=== PATIENT | male | born 1975 | race Caucasian/White ===

== ENCOUNTER → 2017-06-17 | Outpatient (CLI) | payer MEDICARE, MEDICAID | LOC: CARD 13:15 | PROVIDERS: ATTEND Internal Medicine Cardiovascular Disease | DX: R07.9 Chest pain, unspecified (principal); G80.9 Cerebral palsy, unspecified | CPT/HCPCS: 93306 ==

== ENCOUNTER 2020-06-07 21:06 | Emergency (ER) | payer MEDICARE, MEDICAID ==
[~2020-06-07] VITALS: Ht 175 cm; Wt 81.0 kg
--- OUTSIDE RECORDS SUMMARY | 2020-06-07 21:14 | XMS REPORT ---
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 Name Role Phone MARITZA WOODARD Unavailable PROBLEMS Unknown Problems ALLERGIES Substance Reaction Event Type Date Status Bactrim Unknown Drug Allergy Sep, Active ENCOUNTERS Encounter Location Date Diagnosis [facility] [address] [facility] [id number] [place] [address] [phone] Sep, Oral health maintenance stat us requiring routine preventive dental care K08.9 [facility] [address] [id number] [address] [place] [address] [phone] Sep, Caries K02.9 [facility] [address] [id number] [address] [place] [address] [phone] May, Encounter for dental examina tion Z01.20 [facility] [address] [id number] [address] [place] [address] [phone] Nov, Encounter for dental examina tion Z01.20 [facility] [address] [id number] [address] [place] [address] [phone] Apr, Dental examination Z01.20 [facility] [address] [id number] [address] [place] [address] [phone] Sep, Encounter for dental examina tion and cleaning without abnormal findings Z01.20 [facility] [address] [facility] [id number] [address] [place] [phone] March, IMMUNIZATIONS No Known Immunizations SOCIAL HISTORY Never Assessed REASON FOR VISIT Restorative #19 PLAN OF CARE Activity Details Follow Up prn Reason:Hygeine VITAL SIGNS Blood pressure systolic 124 mmHg 2018-10-01 Blood pressure diastolic 88 mmHg 2018-10-01 MEDICATIONS Medication Instructions Dosage Frequency Start Date End Date Duration S tatus Risperidone Active Senna 8.6 MG Orally Once a day 2 tablets at bedtime as needed 24h Active HydrOXYzine HCl 25 MG Orally every 8 hrs 1 tablet as needed 8h Active Flonase 50 MCG/ACT Nasally Once a day 1 spray in each nostril 24h Active Cyclobenzaprine HCl 10 MG Orally Three times a day 1 tablet 8h Active RESULTS No Results PROCEDURES Procedure Date Ordered Result Body Site RESIN COMPOS - 1 SURFACE POSTERIOR Oct 01, 2018 Billing Notes on claim Oct 01, 2018 INSTRUCTIONS MEDICATIONS ADMINISTERED No Known Medications MEDICAL (GENERAL) HISTORY Type Description Date Medical History back trouble Medical History mild IDD Medical History Autism Medical History Depression Medical History Cerebral Palsy Surgical History Rectum surgery Hospitalization History rectum surgery
--- OUTSIDE RECORDS SUMMARY | 2020-06-07 21:14 | XMS REPORT | Continuity of Care Document ---
Author Organization Unknown Address Unknown Phone Unavailable Allergies Active Description Code Type Severity Reaction Onset Reported/Identified Relationship to Patient Clinical Status Yes BACTRIM BACTRIM SEVERE Yes SULFA (SULFONAMIDE ANTIBIOTICS) SULFA (SULFONAMIDE A SEVERE Yes BACTRIM SEVERE DERMATOLOGICAL - JENNIFER Yes BACTRIM SEVERE SEVERE Yes SULFA (SULFONAMIDE ANTIBIOTICS) SEVERE OTHER Yes SULFA (SULFONAMIDE ANTIBIOTICS) SEVERE SEVERE Medications Medication Packaging Start Date St op Date Route Dosage Sig ASA 81MG CHEWABLE TAB 81 MG (BABY ASPIRIN) MG 12/16/2016 12/16/2016 ONCE&1220 ASA 81MG CHEWABLE TAB 81 MG (BABY ASPIRIN) MG 12/17/2016 12/17/2016 ONCE&1027 ASA 81MG CHEWABLE TAB 81 MG (BABY ASPIRIN) MG 12/18/2016 12/24/2016 Daily&0900 Problems Date Dx Coded Attending Type Code Diagnosis Diagnosed By 12/16/2016 Elbert Brandon 299.0 AUTISTIC DISORDER 12/16/2016 Elbert Brandon 786.5 CHEST PAIN 12/16/2016 Elbert Brandon F84.0 AUTISTIC DISORDER 12/16/2016 Elbert Brandon R07.89 OTHER CHEST PAIN 12/17/2016 Elbert Brandon 786.5 CHEST PAIN 12/17/2016 Elbert Brandon R07.89 OTHER CHEST PAIN 07/17/2017 KEVON GUADARRAMA MD Ot G80. 9 CEREBRAL PALSY, UNSPECIFIED 07/17/2017 KEVON GUADARRAMA MD Ot R07. 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, BILATERAL 05/05/2018 W R52 PAIN, UNSPECIFIED 05/05/2018 A V70.0 ROUT INE GENERAL MEDICAL EXAMINATION AT A HEALTH CARE FACILITY 05/05/2018 A Z00.01 ENC OUNTER FOR GENERAL ADULT MEDICAL EXAMINATION WITH ABNORMAL FINDINGS 11/24/2018 W 461.9 ACUT E SINUSITIS, UNSPECIFIED 11/24/2018 W 786.2 COUGH 11/24/2018 W 847.9 SPRA IN OF UNSPECIFIED SITE OF BACK 11/24/2018 W J01.90 ACU TE SINUSITIS, UNSPECIFIED 11/24/2018 W R05 COUGH 11/24/[address] RAIN OF MUSCLE, FASCIA AND TENDON OF LOWER BACK 12/21/2018 W R46.89 OTH ER SYMPTOMS AND SIGNS INVOLVING APPEARANCE AND BEHAVIOR 12/21/2018 W V41.8 OTHE R PROBLEMS WITH SPECIAL FUNCTIONS 05/10/2019 W 054.9 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 05/10/2019 W 523.10 CHR ONIC GINGIVITIS, PLAQUE INDUCED 05/10/2019 W 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 05/10/2019 W K05.10 CHR ONIC GINGIVITIS, PLAQUE INDUCED 05/10/2019 W V58.69 ANGELA G-TERM (CURRENT) USE OF OTHER MEDICATIONS 05/10/2019 W V70.0 ROUT INE GENERAL MEDICAL EXAMINATION AT A HEALTH CARE FACILITY 05/10/2019 W Z00.00 ENC OUNTER FOR GENERAL ADULT MEDICAL EXAMINATION WITHOUT ABNORMAL FINDINGS 05/10/2019 W Z79.899 OT HER SHIP MATE (CURRENT) DRUG THERAPY 07/12/2019 Niecy Rtoh 704.8 OTHER SPECIFIED DISEASES OF HAIR AND HAIR FOLLICLES 07/12/2019 Niecy Roth L73.9 FOLLICULAR DISORDER, UNSPECIFIED 07/12/2019 Niecy Roth 704.8 OTHER SPECIFIED DISEASES OF HAIR AND HAIR FOLLICLES 07/12/2019 Niecy Roth L73.9 FOLLICULAR DISORDER, UNSPECIFIED 07/12/2019 Niecy Roth 704.8 OTHER SPECIFIED DISEASES OF HAIR AND HAIR FOLLICLES 07/12/2019 Niecy Roth73.9 FOLLICULAR DISORDER, UNSPECIFIED Procedures There is no data. Results Test Result Range Thyroid Stimulating Hormone - 10/09/16 1 0:00 TSH 2.09 mIU/mL 0.32-5.00 Comprehensive Metabolic Panel - 10/21/16 12:25 Albumin 4.7 g/dL 3.6-5.1 ALP 84 U/L 35-130 ALT 50 U/L 6-45 Anion Gap 14 6-14 AST 26 U/L 2-40 BUN 11 mg/dL 5-25 Calcium 9.7 mg/dL 8.3-10.4 Chloride 108 mmol/L 95-114 CO2 22 mEq/L 22-33 Creat 0.84 mg/dL 0.50-1.50 eGFR 100 mL/min/1.73m2 >59 Globulin 2.4 g/dL 2.3-3.5 Glucose 123 mg/dL 70-110 Osmo 290 280-295 Potassium 3.9 mmol/L 3.5-5.3 Sodium 140 mmol/L 134-148 TBil 1.0 mg/dL 0.2-1.2 TP 7.1 g/dL 6.0-8.3 [facility] - 10/25/16 09:19 [facility] 0.55 mmol/L 0.60-1.40 [facility] - 12/02/16 08:38 [facility] 0.53 mmol/L 0.60-1.40 [facility] - 12/05/16 09:00 [facility] 0.80 mmol/L 0.60-1.40 Thyroid Stimulating Hormone - 12/12/16 0 9:31 TSH 2.41 mIU/mL 0.32-5.00 Cardiac Panel - 12/16/16 12:20 CK 91 U/L 26-174 CK-MB 0.8 ng/ml 0.0-9.2 Myoglobin 24.4 ng/ml 1.6-154.9 Troponin 0.033 ng/mL 0.000-0.400 Cardiac Panel - 12/16/16 14:50 CK 85 U/L 26-174 CK-MB 0.6 ng/ml 0.0-9.2 Myoglobin 21.6 ng/ml 1.6-154.9 Troponin 0.030 ng/mL 0.000-0.400 Cardiac Panel - 12/17/16 10:18 CK 78 U/L 26-174 CK-MB 0.6 ng/ml 0.0-9.2 Myoglobin 24.2 ng/ml 1.6-154.9 Troponin <0.020 ng/mL 0.0-0.4 [facility] - 12/17/16 10:19 [facility] 0.91 mmol/L 0.60-1.40 Thyroid Stimulating Hormone - 02/24/17 0 8:59 TSH 1.61 mIU/mL 0.32-5.00 Thyroid Stimulating Hormone - 03/13/17 0 9:23 TSH 2.21 mIU/mL 0.32-5.00 Thyroid Stimulating Hormone - 05/19/17 0 8:37 TSH 2.87 mIU/mL 0.32-5.00 Thyroid Stimulating Hormone - 08/08/17 1 0:56 TSH 1.61 mIU/mL 0.32-5.00 Thyroid Stimulating Hormone - 10/31/17 0 8:47 TSH 2.08 mIU/mL 0.32-5.00 Thyroid Stimulating Hormone - 02/03/18 0 8:41 TSH 1.93 mIU/mL 0.32-5.00 Hepatic Panel - 02/19/18 09:12 Albumin 4.8 g/dL 3.6-5.1 ALP 66 U/L 35-130 ALT 56 U/L 6-45 AST 28 U/L 2-40 DBil 0.2 mg/dL 0.0-0.2 GGT 39 U/L 5-40 Globulin 2.7 g/dL 2.3-3.5 TBil 0.5 mg/dL 0.2-1.2 TP 7.5 g/dL 6.0-8.3 Hepatic Panel - 03/26/18 09:20 Albumin 4.5 g/dL 3.6-5.1 ALP 68 U/L 35-130 ALT 85 U/L 6-45 AST 40 U/L 2-40 DBil 0.1 mg/dL 0.0-0.2 GGT 52 U/L 5-40 Globulin 2.5 g/dL 2.3-3.5 TBil 0.4 mg/dL 0.2-1.2 TP 7.0 g/dL 6.0-8.3 Thyroid Stimulating Hormone - 04/23/18 0 9:14 TSH 2.91 mIU/mL 0.32-5.00 Hepatic Panel - 05/06/18 09:21 Albumin 5.1 g/dL 3.6-5.1 ALP 66 U/L 35-130 ALT 98 U/L 6-45 AST 42 U/L 2-40 DBil 0.3 mg/dL 0.0-0.2 GGT 41 U/L 5-40 Globulin 2.2 g/dL 2.3-3.5 TBil 0.8 mg/dL 0.2-1.2 TP 7.3 g/dL 6.0-8.3 Thyroid Stimulating Hormone - 07/22/18 0 8:11 TSH 2.62 mIU/mL 0.32-5.00 Lipid Panel - 08/06/18 09:31 C/HDL 2.8 3.7-6.7 Cholesterol 184 mg/dL 100-240 HDL 66 mg/dL 30-85 LDL-Calculated 103 mg/dL 0-100 Trig 75 mg/dL 35-160 VLDL 15 mg/dL 0-42 [facility] - 11/26/18 09:35 [facility] 0.91 mmol/L 0.60-1.40 Comprehensive Metabolic Panel - 05/10/19 10:40 Albumin 4.7 g/dL 3.6-5.1 ALP 81 U/L 35-130 ALT 20 U/L 6-45 Anion Gap 13 6-14 AST 18 U/L 2-40 BUN 11 mg/dL 5-25 Calcium 10.5 mg/dL 8.3-10.4 Chloride 108 mmol/L 95-114 CO2 22 mEq/L 22-33 Creat 0.73 mg/dL 0.50-1.50 eGFR 116 mL/min/1.73m2 >59 Globulin 2.4 g/dL 2.3-3.5 Glucose 101 mg/dL 70-110 Osmo 287 280-295 Potassium 4.1 mmol/L 3.5-5.3 Sodium 139 mmol/L 134-148 TBil 0.3 mg/dL 0.2-1.2 TP 7.1 g/dL 6.0-8.3 Thyroid Stimulating Hormone - 05/12/19 0 9:04 TSH 2.17 mIU/mL 0.32-5.00 Thyroid Stimulating Hormone - 07/28/19 0 9:07 TSH 1.18 mIU/mL 0.32-5.00 Comprehensive Metabolic Panel - 11/04/19 08:44 Albumin 5.0 g/dL 3.6-5.1 ALP 79 U/L 35-130 ALT 24 U/L 6-45 Anion Gap 14 6-14 AST 22 U/L 2-40 BUN 11 mg/dL 5-25 Calcium 10.4 mg/dL 8.3-10.4 Chloride 106 mmol/L 95-114 CO2 22 mEq/L 22-33 Creat 0.81 mg/dL 0.50-1.50 eGFR 103 mL/min/1.73m2 >59 Globulin 2.6 g/dL 2.3-3.5 Glucose 99 mg/dL 70-110 Osmo 285 280-295 Potassium 4.3 mmol/L 3.5-5.3 Sodium 138 mmol/L 134-148 TBil 0.7 mg/dL 0.2-1.2 TP 7.6 g/dL 6.0-8.3 Encounters ACCT No. Visit Date/Time Discharge Status Pt. Type Provider Facility Loc./Unit Complaint [id number] 05/06/2014 09:55:00 05/06/2014 23:59: 59 CLS Outpatient JUAN PABLO FRAGOSO DDS Moo [id number] 04/03/2020 15:28:00 04/03/2020 23:59 :00 DIS Outpatient Niecy Roth [id number] 12/17/2019 08:18:00 12/17/2019 23:59 :00 DIS Outpatient Niecy Roth [id number] 11/04/2019 08:40:00 11/04/2019 23:59 :00 DIS Outpatient Estrella Emery [id number] 07/28/2019 09:03:00 07/28/2019 23:59: 00 DIS Outpatient Estrella Emery [id number] 07/12/2019 13:00:00 07/12/2019 23:59: 00 DIS Outpatient Niecy Roth [id number] 07/09/2019 16:39:00 07/09/2019 23:59: 00 DIS Outpatient Niecy Roth [id number] 07/09/2019 10:13:00 07/09/2019 23:59: 00 DIS Outpatient Niecy Roth [id number] 05/12/2019 09:01:00 05/12/2019 23:59: 00 DIS Outpatient JERRELL JESUS [id number] 05/10/2019 13:51:00 05/10/2019 23:59: 00 DIS Outpatient JERRELL JESUS [id number] 11/26/2018 09:24:00 11/26/2018 23:59: 00 DIS Outpatient SARAH CHOWDARY [id number] 08/06/2018 09:21:00 08/06/2018 23:59: 00 DIS Outpatient Estrella Emery [id number] 08/04/2018 13:21:00 08/04/2018 13:21: 00 CAN Outpatient JERRELL JESUS [id number] 07/22/2018 08:08:00 07/22/2018 23:59: 00 DIS Outpatient Larry Welch [id number] 05/06/2018 09:18:00 05/06/2018 23:59: 00 DIS Outpatient Rupert Estrella [id number] 04/23/2018 09:08:00 04/23/2018 23:59: 00 DIS Outpatient Rupert Estrella [id number] 03/26/2018 09:16:00 03/26/2018 23:59: 00 DIS Outpatient Larry Welch [id number] 02/19/2018 09:10:00 02/19/2018 23:59: 00 DIS Outpatient MaldonadomamadouLarry [id number] 02/03/2018 08:37:00 02/03/2018 23:59: 00 DIS Outpatient Estrella Emery [id number] 01/23/2018 08:39:00 01/23/2018 08:39: 00 CAN Outpatient Alber Spain [id number] 10/31/2017 08:44:00 10/31/2017 23:59: 00 DIS Outpatient Alber Spain [id number] 08/08/2017 10:45:00 08/08/2017 23:59: 00 DIS Outpatient Alber Spain [id number] 05/19/2017 08:34:00 05/19/2017 23:59: 00 DIS Outpatient Abler Spain [id number] 03/13/2017 09:08:00 03/13/2017 23:59: 00 DIS Outpatient Estrella Emery [id number] 02/24/2017 08:54:00 02/24/2017 23:59: 00 DIS Outpatient Estrella Emery [id number] 12/17/2016 10:01:00 12/17/2016 11:54: 00 [id number] 12/16/2016 11:57:00 12/16/2016 15:39: 00 [id number] 12/12/2016 09:27:00 12/12/2016 23:59: 00 DIS Outpatient Estrella Emery [id number] 12/05/2016 08:57:00 12/05/2016 23:59: 00 DIS Outpatient Alber Spain [id number] 12/02/2016 08:31:00 12/02/2016 23:59: 00 DIS Outpatient Estrella Emery [id number] 10/25/2016 09:12:00 10/25/2016 23:59: 00 DIS Outpatient Mike Toure [id number] 10/21/2016 12:14:00 10/21/2016 23:59: 00 DIS Outpatient JuditAlber [id number] 10/09/2016 09:56:00 10/09/2016 23:59: 00 DIS Outpatient Estrella Emery [id number] 05/10/2019 10:30:00 Document Registration [id number] 12/21/2018 10:00:00 Document Registration [id number] 11/24/2018 17:10:00 Document Registration [id number] 05/06/2018 15:20:00 Document Registration [id number] 12/16/2016 12:22:22 Document Registration [id number] 01/14/2017 13:06:06 7 23:59:59 CLS Outpatient Niecy Portillo [facility] [id number] 06/17/2017 13:15:00 017 23:59:59 CLS Outpatient THIERRY OWENS, KEVON Choe [facility] CARD CHEST PAIN SYNDROME [id number] 06/07/2020 21:08:[address] Emergency ARRON OWENS, NIYA Choe [facility] ER R [place]OT [place]ED [place]IL [id number] 04/20/2019 10:30:00 04/20/2019 23:59:5 9 CLS Outpatient [facility]
--- OUTSIDE RECORDS SUMMARY | 2020-06-07 21:14 | XMS REPORT ---
Author Lee Parisi Organization [employer] Address Unknown Phone Unavailable Care Team Providers Care Die Set Up Worker Name Role Phone MICHELLE NIEVES CP Unavailable Allergies, Adverse Reactions, Alerts Substance Reaction Event Type N.K.D.A. Info Not Available Non Drug Allergy Problems Problem Type Condition Code Onset Dates Condition Statu s Assessment Encounter for dental examina tion and cleaning without abnormal findings Z01.20 Active Problem Encounter for dental examination and celia aning without abnormal findings Z01.20 Active Medications Medication Code System Code Instructions Start Date End Date Status Dosage Risperidone [facility] [id number] not de fined Procedures Procedure Coding System Code Date PANORAMIC FILM SEE ALSO CODE 12088 CPT-4 D0330 Oct 13, 2015 INTRAORL-PERIAPICAL 1 FILM 24469 CPT-4 D0220 Oct 13, 2015 COMP ORAL EVALUATION - NEW/EST PT CPT-4 D0150 Oct 13, 2015 TOPICAL FLUORIDE VARNISH CPT-4 D1206 Oct 13, 2015 INTRAORL-PERIAPICAL EA ADD FILM CPT-4 D0230 Oct 13, 2015 INTRAORL-PERIAPICAL 1 FILM 48484 CPT-4 D0220 Oct 13, 2015 PROPHYLAXIS - ADULT CPT-4 D1110 Oct 13, 2015 BITEWINGS - FOUR FILMS CPT-4 D0274 Oct 13, 2 015 Vital Signs Date/Time: Oct 13, 2015 Blood Pressure Diastolic 86 mmHg Blood Pressure Systolic 117 mmHg Results No Known Results Summary Purpose [employer] Submission
--- OUTSIDE RECORDS SUMMARY | 2020-06-07 21:14 | XMS REPORT ---
Author Author Digital Reasoning binder [employer] [facility] [place] [employer] [facility] [employer] Address [address] [place] [address] Care Team Providers Care Remittance Clerk Name Role Phone MICHELLE NIEVES Unavailable Unavailable MARITZA WOODARD Unavailable HOWFLORECITA, MIHAI Unavailable Unavailable JESUS, JERRELL Unavailable Unavailable JESUS, JERRELL Unavailable Unavailable TRUDI, EZRA Unavailable Unavailable TRUDI, EZRA Unavailable Unavailable RAYMOND, KEYUR Unavailable Unavailable RAYMOND, KEYUR Unavailable Unavailable RAYMOND, KEYUR Unavailable Unavailable TEREZA, DIAMANTE Unavailable Unavailable TEREZA, DIAMANTE Unavailable Unavailable TEREZA, DIAMANTE Unavailable Unavailable Niecy Portillo Unavailable Unavaila ble JESUS, JERRELL Unavailable Unavailable JESUS, JERRELL Unavailable Unavailable JESUS, JERRELL Unavailable Unavailable DONNELLY, NIECY Unavailable Unavailable DONNELLY, NIECY Unavailable Unavailable DONNELLY, NIECY Unavailable Unavailable RAYMOND, KEYUR Unavailable Unavailable RAYMOND, KEYUR Unavailable Unavailable RAYMOND, KEYUR Unavailable Unavailable PCP, OUTSIDE Unavailable Unavailable Unavailable Unavailable Unavailable Unavailable Unavailable Unavailable Allergies Allergy Reported Allergen(s) Allergy Type Date of Reaction(s) Care Facility Classificati Onset Provider on Sulfamethoxa Sulfamethoxazole / Drug Allergy 10-01-2018 Unknown MIHAI Not zole / Trimethoprim ; HOWAYEK Available Trimethoprim Translations: (84191) (24 sources) [Sulfamethoxazole 400 MG / Trimethoprim 80 MG Oral Tablet [Bactrim]] Sulfonamides Sulfonamides (Antibiotic) Drug Allergy OTHER, S IMON Not (antibiotic) SEVERE HOWAYEK Available (23 sources) ([id number]) Encounters Encounter Date Encounter Type Encounter Diagnosis Care Provider Facility Start: Patient encounter [facility] Di strict #1 04-03-2020 [facility] End: 04-03-2020 Start: Patient encounter [facility] Di strict #1 12-17-2019 procedure [facility] ([id number]) End: 12-17-2019 Start: Patient encounter [facility] istrict #1 11-04-2019 procedure [facility] ([id number]) End: 11-04-2019 Start: Patient encounter [facility] D istrict #1 07-28-2019 procedure of [facility] ([id number]) End: 07-29-2019 Start: Patient encounter [facility] Di strict #1 07-12-2019 procedure of [facility] ([id number]) End: 07-13-2019 Start: Patient encounter [facility] Di strict #1 07-09-2019 procedure of [facility] ([id number]) End: 07-10-2019 Start: Patient encounter [facility] Di strict #1 07-09-2019 procedure of [facility] ([id number]) End: 07-10-2019 Start: Patient encounter [facility] Di strict #1 05-12-2019 procedure of [facility] ([id number]) End: 05-13-2019 Start: Patient encounter [facility] Di strict #1 05-10-2019 procedure of [facility] ([id number]) End: 05-11-2019 Start: Patient encounter [facility] Di strict #1 05-10-2019 procedure of [facility] ([id number]) End: 05-11-2019 Start: Patient encounter OUT[facility]IDE [facility] 04-20-2019 procedure [facility] ([id number]) Start: Patient encounter [facility] Di strict #1 12-21-2018 procedure of [facility] ([id number]) End: 12-22-2018 Start: Patient encounter [facility] Di strict #1 11-26-2018 procedure of [facility] ([id number]) End: 11-27-2018 Start: Patient encounter [facility] Di strict #1 11-24-2018 procedure of [facility] ([id number]) End: 11-25-2018 Start: [facility] Disorder of teeth and MICHELLE LEBRON ON [facility] 10-01-2018 DENTAL supporting DENTAL structures, unspecified Start: [facility] Dental caries, MARITZA NEARING [facility] 10-01-2018 DENTAL unspecified DENTAL Start: Patient encounter 08-06-2018 procedure End: 08-07-2018 Start: Patient encounter [facility] #1 07-22-2018 procedure of [facility] ([id number]) End: 07-23-2018 Start: [facility] Encounter for dental FATMATA RAFA [facility] 06-16-2018 DENTAL examination and DENTAL cleaning without abnormal findings Start: Patient encounter NA NA Not Availab le ([id number]) 06-16-2018 procedure Start: Patient encounter [facility] Di strict #1 05-06-2018 procedure of [facility] ([id number]) End: 05-06-2018 Start: Patient encounter 10-31-2017 procedure End: 10-31-2017 Start: Patient encounter DIAMANTE TEREZA Not Availab le ([id number]) 08-08-2017 procedure End: 08-09-2017 Start: Patient encounter KEVON GUADARRAMA MD Not Availa ble ([id number]) 06-17-2017 procedure Start: Patient encounter DIAMANTE STARKS Not Availab le ([id number]) 05-19-2017 procedure End: 05-20-2017 Start: Patient encounter KEYUR ANDRADE Not Availa ble ([id number]) 02-24-2017 procedure End: 02-25-2017 Start: Patient encounter Niecy Portillo Not A vailable ([id number]) 01-14-2017 procedure End: 01-15-2017 Start: Patient encounter MIHAI PHAM Not Availab le ([id number]) 12-17-2016 procedure End: 12-17-2016 Start: Patient encounter MIHAI PHAM Not Availab le ([id number]) 12-16-2016 procedure End: 12-16-2016 Start: Patient encounter KEYUR ANDRADE Not Availa ble ([id number]) 12-12-2016 procedure End: 12-13-2016 Start: Patient encounter DIAMANTE STARKS Not Availab le ([id number]) 12-05-2016 procedure End: 12-06-2016 Start: Patient encounter KEYUR ANDRADE Not Availa ble ([id number]) 12-02-2016 procedure End: 12-03-2016 Start: [facility] Encounter for dental FATMATA RAFA [facility] 11-20-2016 DENTAL examination and DENTAL cleaning without abnormal findings Start: [facility] Encounter for dental FATMATA RAFA [facility] 05-13-2016 DENTAL examination and DENTAL cleaning without abnormal findings Start: [facility] Encounter for dental MICHELLE Herrera [facility] 10-13-2015 DENTAL examination and DENTAL cleaning without abnormal findings Start: Telephone encounter SARAH [facility] 03-21-2015 Encounter for general [facility] Distric t #1 [facility] [place] examination without ([id number]) abnormal findings [facility] examination with ([id number]) abnormal findings Medical Equipment No Information Goals No Information Immunizations The data below is from unstructured sources No Known Immunizations Interventions No Information Medications Medication Drug Dates Sig Sig (Original) Class(es) (Normalized) cyclobenzaprine Muscle take 1 tablet Cyclobenzaprin e HCl 10 MG Orally Three hydrochloride 10 mg oral Relaxant by mouth three times a day 1 tablet 8h Active tablet times daily (1 source) fluticasone propionate Corticoste take 1 spray(s) Flonas e 50 MCG/ACT Nasally Once a day 1 0.05 mg/actuat metered roid nasal route spray i n each nostril 24h Active dose nasal spray once daily (1 source) hydrOXYzine Antihistam take 1 tablet HydrOXYzine HCl 25 MG Orally every 8 hrs hydrochloride 25 mg oral ine by mouth every 1 tab let as needed 8h Active tablet eight hours as (1 source) needed Senna Leaves take 2 tablets Senna 8.6 MG Orally Once a day 2 tablets (1 source) by mouth once at bedtime as neede d 24h Active daily at bedtime as needed Payers Date Payer Normalized Payer Policy ID MEDICARE MEDICARE Plan of Treatment The data below is from unstructured sources Activity Details Follow Up prn Reason:Hygeine Problems Active Problems Problem Problem Date Last Documented Episodic/Chr Provider Classificati Recorded Date onic on Disorders of Chronic gingivitis, plaque induced Chronic JERRELL teeth and ; Translations: [CHRONIC JESUS jaw GINGIVITIS, PLAQUE INDUCED] (4 sources) Disorders Autistic disorder Chronic MIHAI usually HOWAYEK diagnosed in infancy, childhood, or adolescence (3 sources) Paralysis Cerebral palsy, unspecified Chronic KEVON GUADARRAMA (1 source) Past or Other Problems Problem Problem Date Last Documented Episodic/Chr Provider Classificati Recorded Date onic on Attention-de Other symptoms and signs involving Episodic JERRELL ficit, appearance and behavior JESUS conduct, and disruptive behavior disorders (2 sources) Disorders of Disorder of teeth and supporting Episodic MARITZA teeth and structures, unspecified ; NEARING jaw Translations: [Dental caries, Other Phone: (2 sources) unspecified] Nonspecific Chest pain, unspecified ; Episodic SI MON chest pain Translations: [Other chest pain] CAROL CORONA (5 sources) Other Long-term (current) use of other Episodic JERRELL aftercare medications JESUS (2 sources) Other Other retirement (current) drug Episodic JERRELL aftercare therapy JESUS (2 sources) Other ear Otalgia, bilateral Episodic JERERLL and sense JESUS organ disorders (2 sources) Other lower Cough Episodic JERRELL respiratory JESUS disease (2 sources) Other lower Cough Episodic JERRELL respiratory JESUS disease (2 sources) Other skin Other melanin hyperpigmentation Episodic Niecy disorders Alfredo-Vette (1 source) r Other skin Other seborrheic keratosis Episodic P ilir disorders Alfredo-Vette (2 sources) r Other skin Follicular disorder, unspecified Episodic NIECY disorders CONY (5 sources) Other skin Other specified diseases of hair Episodic NIECY disorders and hair follicles CONY (5 sources) Other upper Acute sinusitis, unspecified ; Episodic JERRELL respiratory Translations: [ACUTE SINUSITIS, JONATHAN VENS infections UNSPECIFIED ] (4 sources) Residual Other problems with special Episodic JERRELL codes; functions JESUS unclassified (2 sources) Residual Pain, unspecified Episodic JERRELL codes; JESUS unclassified (2 sources) Spondylosis; Backache, unspecified Episodic JERRELL intervertebr JESUS al disc disorders; other back problems (2 sources) Sprains and Sprain of unspecified site of back Episodic JERRELL strains JESUS (2 sources) Unclassified Chest pain ; Translations: MIHAI (7 sources) [AUTISTIC DISORDER] HOWAYEK Unclassified Otalgia JERRELL (2 sources) JESUS Unclassified Strain of muscle, fascia and tendon JERRELL (2 sources) of lower back JESUS Viral Herpesviral vesicular dermatitis ; Episodic JERRELL infection Translations: [HERPES SIMPLEX BERNABE NS (4 sources) WITHOUT MENTION OF COMPLICA TION] Procedures Date Procedure Procedure Detail Performing Cl inician Start: Billing Notes on MARITZA NEARING 10-01-2018 claim Other Phone: Start: Post 1 [facility] MARITZA NEARING 10-01-2018 resinbased cmpst Other Phone: Results Test Name Value Interpreta Reference Facilit Date tion Range y Time laboratory on 2019-11-04 Albumin BCG dye 5.0 Invalid 3.6-5.1 [facility]osp[facility] [Mass/Vol] Interpreta g/dL l 019 tion Code Distric 03:44-0 t #1 of [facility] ([id number]) ALP [Catalytic 79 U/L Invalid 35-130 U/L Hospita -19-2 activity/Vol] Interpreta l 019 tion Code Distric 03:44-0 t #1 of [address] [facility] ([id number]) ALT [Catalytic 24 U/L Invalid 6-45 U/L Hospita 19-2 activity/Vol] Interpreta l 019 tion Code Distric 03:44-[address] t [address] [place] [address] ([id number]) Anion gap 14 mmol/L Invalid 6-14 Hospita 11-04-2 [Moles/Vol] Interpreta l 019 tion Code Distric 03:44-[address] t [address] [place] [address] ([id number]) AST [Catalytic 22 U/L Invalid 2-40 U/L [facility]ospita 11-04-2 activity/Vol] Interpreta l 019 tion Code Distric 03:44-0 t [address] [place] [address] ([id number]) Basophils (Bld) 0.0 10*3/uL Invalid 0.0-0.2 [facility]ospita 11-04 -2 [#/Vol] Interpreta K/uL l 019 tion Code Distric 03:44-0 t [address] [place] [address] ([id number]) Basophils/100 WBC 0.10 % Invalid 0.00-2.50 [facility]osp[facility] 19 -2 (Bld) Interpreta % l 019 tion Code Distric 03:44-[address] t [address] [place] [address] ([id number]) Bilirubin [Mass/Vol] 0.7 mg/dL Invalid 0.2-1.2 Hospita -2 Interpreta mg/dL l 019 tion Code Distric 03:44-0 t [address] [place] [address] ([id number]) Calcium [Mass/Vol] 10.4 mg/dL Invalid 8.3-10.4 [facility]ospita 12- 19-2 Interpreta mg/dL l 019 tion Code Distric 03:44-0 t [address] [place] [address] ([id number]) Chloride [Moles/Vol] 106 mmol/L Invalid 95-114 Hospita 1 2-19-2 Interpreta mmol/L l 019 tion Code Distric 03:44-0 t [address] [place] [address] ([id number]) Creatinine 0.81 mg/dL Invalid 0.50-1.50 [facility]ospita [Mass/Vol] Interpreta mg/dL l 019 tion Code Distric 03:44-0 t [address] [place] [address] ([id number]) Eosinophils (Bld) 0.2 10*3/uL [facility].0-0.7 [facility] [#[facility]] Interpre[facility] K/uL l 019 tion Code Distric 03:44-0 t [address] [place] [address] ([id number]) Eosinophils/100 WBC 1.3 % Invalid 0.0-7.0 % Hospita (Bld) Interpreta l 019 tion Code Distric 03:44-0 t [address] [place] [address] () Erythrocyte 12.8 % Invalid 11.6-14.8 [facility] distribution width Interpreta % l 019 (RBC) [Ratio] tion Code Distric 03:44-0 t [address] [place] [address] () GFR/1.73 sq 103 mL/min/{1.73_m2} Invalid >59 [facility] 2 M.predicted MDRD Interpreta mL/min/1.7 l 019 (S/P/Bld) [Vol tion Code 3m2 Distric 03:44-0 rate/Area] t [address] [place] [address] ([id number]) Globulin (S) 2.6 g/dL Invalid 2.3-3.5 [facility] [Mass/Vol] Interpreta g/dL l 019 tion Code Distric 03:44-0 t [address] [place] [address] ([id number]) Glucose [Mass/Vol] 99 mg/dL Invalid 70-110 [facility]ospita 12-1 9-2 Interpreta mg/dL l 019 tion Code Distric 03:44-0 t [address] [place] [address] ([id number]) HCO3 (P) [Moles/Vol] 22 Invalid 22-33 [facility] mEq/L l 019 tion Code Distric 03:44-0 t [address] [place] [address] ([id number]) Hematocrit (Bld) 44.5 % Invalid 42.0-52.0 [facility] [Volume fraction] Interpreta % l 019 tion Code Distric 03:44-0 t #1 of [address] [facility] ([id number]) Hemoglobin (Bld) 14.9 g/dL Invalid 14.0-17.0 [facility]osp[facility] [Mass/Vol] Interpreta g/dL l 019 tion Code Distric 03:44-0 t #1 of [address] [facility] ([id number]) [place] [Moles/Vol] 0.79 mmol/L Invalid 0.60-1.40 [facility]osp[facility] 1 2 Interpreta mmol/L l 019 tion Code Distric 03:44-0 t #1 of 500 [facility] ([id number]) Lymphocytes (Bld) 1.10 10*3/uL Invalid 0.60-3.40 [facility]osp[facility] [#/Vol] Interpreta K/uL l 019 tion Code Distric 03:44-0 t #1 of [address] [facility] ([id number]) Lymphocytes/100 WBC 8.1 % Low 10.0-50.0 [facility]ospita (Bld) % l 019 Distric 03:44-0 t #1 of 500 [facility] ([id number]) MCH (RBC) [Entitic 30.5 pg Invalid 27.0-31.2 Hospita - 9-2 mass] Interpreta pg l 019 tion Code Distric 03:44-0 t #1 of 500 [facility] ([id number]) MCHC (RBC) 33.5 g/dL Invalid 32.0-36.0 [facility]ospita 11-04- [Mass/Vol] Interpreta g/dL l 019 tion Code Distric 03:44-0 t #1 of 500 [facility] ([id number]) MCV (RBC) [Entitic 91.0 fL Invalid 80.0-97.0 [facility]ospita 12- 9-2 vol] Interpreta fL l 019 tion Code Distric 03:44-0 t #1 of 500 [facility] (47657) Monocytes (Bld) 1.1 10*3/uL High 0.0-0.9 [facility]ospita 11-04 [#/Vol] K/uL l 019 Distric 03:44-0 t #1 of [address] [facility] (54653) Monocytes/100 WBC 7.8 % Invalid 0.0-12.0 % [facility]ospita 12- 9-2 (Bld) Interpreta l 019 tion Code Distric 03:44-0 t #1 of [address] [facility] () Neutrophils (Bld) 11.22 10*3/uL High 2.00-6.90 Hospita 1 [#/Vol] K/uL l 019 Distric 03:44-0 t #1 of 500 [facility] () Neutrophils/100 WBC 82.7 % High 37.0-80.0 Hospita - (Bld) % l 019 Distric 03:44-0 t #1 of 500 [facility] ([id number]) Osmolality Calc 285 Invalid 280-295 Hospita [Osmolality] Interpreta l 019 tion Code Distric 03:44-0 t #1 of [address] [facility] () Platelet mean volume 10.2 fL High 7.4-10.0 [facility] (Bld) [Entitic vol] fL l 019 Distric 03:44-0 t #1 of [address] [facility] ([id number]) Platelets (Bld) 305 10*3/uL Invalid 150-400 Hospita 11-04 [#/Vol] Interpreta K/uL l 019 tion Code Distric 03:44-0 t #1 of 500 [facility] ([id number]) Potassium 4.3 mmol/L Invalid 3.5-5.3 [facility]osp[facility] [Moles/Vol] Interpreta mmol/L l 019 tion Code Distric 03:44-0 t #1 of 500 [facility] () Protein [Mass/Vol] 7.6 g/dL Invalid 6.0-8.3 [facility]ospita 12- 9-2 Interpreta g/dL l 019 tion Code Distric 03:44-0 t #1 of 500 [facility] ([id number]) RBC (Bld) [#/Vol] 4.89 10*6/uL Invalid 4.20-5.40 Hospita Interpreta M/uL l 019 tion Code Distric 03:44-0 t #1 of 500 [facility] () Sodium [Moles/Vol] 138 mmol/L Invalid 134-148 Hospita Interpreta mmol/L l 019 tion Code Distric 03:44-[address] t [address] [place] [address] ([id number]) TSH Qn 2.23 Invalid 0.32-5.00 Hospita Interpreta mIU/mL l 019 tion Code Distric 03:44-0 t [address] [place] [address] ([id number]) Urea nitrogen 11 mg/dL Invalid 5-25 mg/dL [facility]ospita [Mass/Vol] Interpreta l 019 tion Code Distric 03:44-0 t [address] [place] [address] ([id number]) WBC (Bld) [#/Vol] 13.57 10*3/uL High 5.00-10.00 [facility]ospita K/uL l 019 Distric 03:44-0 t [address] [place] [address] ([id number]) laboratory on 2019-07-28 Albumin BCG dye 4.8 Invalid 3.6-5.1 [facility] [Mass/Vol] Interpreta g/dL l 019 tion Code Distric 10:07-0 t [address] [place] [address] ([id number]) ALP [Catalytic 67 U/L Invalid 35-130 U/L [facility]osp[facility] activity/Vol] Interpreta l 019 tion Code Distric 10:07-0 t [address] [place] [address] ([id number]) ALT [Catalytic 46 U/L High 6-45 U/L Hospita activity/Vol] l 019 Distric 10:07-0 t [address] [place] [address] ([id number]) Anion gap 12 mmol/L Invalid 6-14 [facility]ospita [Moles/Vol] Interpreta l 019 tion Code Distric 10:07-0 t [address] [place] [address] ([id number]) AST [Catalytic 29 U/L Invalid 2-40 U/L [facility]ospita activity/Vol] Interpreta l 019 tion Code Distric 10:07-0 t [address] [place] [address] ([id number]) Bilirubin [Mass/Vol] 0.6 mg/dL Invalid 0.2-1.2 Hospita Interpreta mg/dL l 019 tion Code Distric 10:07-0 t [address] [place] [address] ([id number]) Calcium [Mass/Vol] 10.5 mg/dL High 8.3-10.4 [facility]ospita 11-2 mg/dL l 019 Distric 10:07-0 t [address] [place] [address] () Chloride [Moles/Vol] 108 mmol/L Invalid 95-114 Hospita 0 11-2 Interpreta mmol/L l 019 tion Code Distric 10:07-0 t [address] [place] [address] () Creatinine 0.79 mg/dL Invalid 0.50-1.50 [facility]ospita 07-28-2 [Mass/Vol] Interpreta mg/dL l 019 tion Code Distric 10:07-0 t [address] [place] [address] () GFR/1.73 sq 106 mL/min/{1.73_m2} Invalid >59 Hospita 07-28-2 M.predicted MDRD Interpreta mL/min/1.7 l 019 (S/P/Bld) [Vol tion Code 3m2 Distric 10:07-0 rate/Area] t [address] [place] [address] () Globulin (S) 2.0 g/dL Low 2.3-3.5 Hospita 07-28-2 [Mass/Vol] g/dL l 019 Distric 10:07-0 t [address] [place] [address] () Glucose [Mass/Vol] 89 mg/dL Invalid 70-110 [facility]ospita 09-1 1-2 Interpreta mg/dL l 019 tion Code Distric 10:07-0 t [address] [place] [address] () HCO3 (P) [Moles/Vol] 25 Invalid 22-33 Hospita -2 Interpreta mEq/L l 019 tion Code Distric 10:07-0 t [address] [place] [address] () Osmolality Calc 290 Invalid 280-295 Hospita 2 [Osmolality] Interpreta l 019 tion Code Distric 10:07-0 t [address] [place] [address] () Potassium 4.3 mmol/L Invalid 3.5-5.3 [facility]ospita 07-28-2 [Moles/Vol] Interpreta mmol/L l 019 tion Code Distric 10:07-0 t [address] [place] [address] ([id number]) Protein [Mass/Vol] 6.8 g/dL Invalid 6.0-8.3 Hospita 09- 1-2 Interpreta g/dL l 019 tion Code Distric 10:07-0 t [address] [place] [address] () Sodium [Moles/Vol] 141 mmol/L Invalid 134-148 Hospita 09-18 Interpreta mmol/L l 019 tion Code Distric 10:0 t [address] [place] [address] () TSH Qn 1.18 Invalid 0.32-5.00 Hospita Interpreta mIU/mL l 019 tion Code Distric 10:07-0 t [address] [place] [address] () Urea nitrogen 10 mg/dL Invalid 5-25 mg/dL [facility]osp[facility] [Mass/Vol] Interpreta l 019 tion Code Distric 10:-0 t [address] [place] [address] () laboratory on 2019-05-12 Albumin BCG dye 4.8 Invalid 3.6-5.1 [facility]osp[facility] [Mass/Vol] Interpreta g/dL l 019 tion Code Distric 10:04-0 t [address] [place] [address] () ALP [Catalytic 80 U/L Invalid 35-130 U/L Hospita activity/Vol] Interpreta l 019 tion Code Distric 10:04-0 t [address] [place] [address] () ALT [Catalytic 22 U/L Invalid 6-45 U/L Hospita activity/Vol] Interpreta l 019 tion Code Distric 10:04-0 t [address] [place] [address] () Anion gap 14 mmol/L Invalid 6-14 Hospita [Moles/Vol] Interpreta l 019 tion Code Distric 10:04-0 t [address] [place] [address] () AST [Catalytic 24 U/L Invalid 2-40 U/L Hospita activity/Vol] Interpreta l 019 tion Code Distric 10:04-0 t [address] [place] [address] () Bilirubin [Mass/Vol] 0.7 mg/dL Invalid 0.2-1.2 Hospita 06 -26-2 Interpreta mg/dL l 019 tion Code Distric 10:04-0 t [address] [place] [address] ([id number]) Calcium [Mass/Vol] 10.5 mg/dL High 8.3-10.4 Hospita -2 mg/dL l 019 Distric 10:04-0 t [address] [place] [address] () Chloride [Moles/Vol] 106 mmol/L Invalid 95-114 Hospita 0 05-12-2 Interpreta mmol/L l 019 tion Code Distric 10:04-0 t [address] [place] [address] () Creatinine 0.78 mg/dL Invalid 0.50-1.50 [facility]ospita 05-12-2 [Mass/Vol] Interpreta mg/dL l 019 tion Code Distric 10:04-0 t [address] [place] [address] () GFR/1.73 sq 108 mL/min/{1.73_m2} Invalid >59 Hospita 05-12-2 M.predicted MDRD Interpreta mL/min/1.7 l 019 (S/P/Bld) [Vol tion Code 3m2 Distric 10:04-0 rate/Area] t [address] [place] [address] () Globulin (S) 2.6 g/dL Invalid 2.3-3.5 Hospita 05-12-2 [Mass/Vol] Interpreta g/dL l 019 tion Code Distric 10:04-0 t [address] [place] [address] () Glucose [Mass/Vol] 78 mg/dL Invalid 70-110 Hospita 06-2 6-2 Interpreta mg/dL l 019 tion Code Distric 10:04-0 t [address] [place] [address] ([id number]) HCO3 (P) [Moles/Vol] 24 Invalid 22-33 Hospita -2 Interpreta mEq/L l 019 tion Code Distric 10:04-0 t [address] [place] [address] () [place] [Moles/Vol] 0.84 mmol/L Invalid 0.60-1.40 [facility]ospita 0 -26-2 Interpreta mmol/L l 019 tion Code Distric 10:04-0 [address] [place] [address] () Osmolality Calc 287 Invalid 280-295 Hospita 06-26-2 [Osmolality] Interpreta l 019 tion Code Distric 10:04-0 t [address] [place] [address] ([id number]) Potassium 4.3 mmol/L Invalid 3.5-5.3 Hospita 2 [Moles/Vol] Interpreta mmol/L l 019 tion Code Distric 10:04-0 t [address] [place] [address] ([id number]) Protein [Mass/Vol] 7.4 g/dL Invalid 6.0-8.3 Hospita - 6-2 Interpreta g/dL l 019 tion Code Distric 10:04-0 [address] [place] [address] ([id number]) Sodium [Moles/Vol] 140 mmol/L Invalid 134-148 Hospita Interpreta mmol/L l 019 tion Code Distric 10:04-0 t [address] [place] [address] ([id number]) TSH Qn 2.17 Invalid 0.32-5.00 Hospita Interpreta mIU/mL l 019 tion Code Distric 10:04-0 t [address] [place] [address] () Urea nitrogen 9 mg/dL Invalid 5-25 mg/dL Hospita [Mass/Vol] Interpreta l 019 tion Code Distric 10:04-0 t [address] [place] [address] () laboratory on 2019-05-10 Albumin BCG dye 4.7 Invalid 3.6-5.1 Hospita 05-10- [Mass/Vol] Interpreta g/dL l 019 tion Code Distric 11:40-0 [address] [place] [address] ([id number]) ALP [Catalytic 81 U/L Invalid 35-130 U/L Hospita activity/Vol] Interpreta l 019 tion Code Distric 11:40-0 [address] [place] [address] ([id number]) ALT [Catalytic 20 U/L Invalid 6-45 U/L Hospita activity/Vol] Interpreta l 019 tion Code Distric 11:40-0 t [address] [place] [address] ([id number]) Anion gap 13 mmol/L Invalid 6-14 Hospita 2 [Moles/Vol] Interpreta l 019 tion Code Distric 11:40-0 t [address] [place] [address] ([id number]) AST [Catalytic 18 U/L Invalid 2-40 U/L Hospita 24-2 activity/Vol] Interpreta l 019 tion Code Distric 11:40-0 t [address] [place] [address] ([id number]) Bilirubin [Mass/Vol] 0.3 mg/dL Invalid 0.2-1.2 Hospita 24-2 Interpreta mg/dL l 019 tion Code Distric 11:40-0 t [address] [place] [address] () Calcium [Mass/Vol] 10.5 mg/dL High 8.3-10.4 Hospita 06 24-2 mg/dL l 019 Distric 11:40-0 t [address] [place] [address] () Chloride [Moles/Vol] 108 mmol/L Invalid 95-114 Hospita 0 6-24-2 Interpreta mmol/L l 019 tion Code Distric 11:40-0 t [address] [place] [address] () Creatinine 0.73 mg/dL Invalid 0.50-1.50 Hospita 24-2 [Mass/Vol] Interpreta mg/dL l 019 tion Code Distric 11:40-0 t [address] [place] [address] () GFR/1.73 sq 116 mL/min/{1.73_m2} Invalid >59 Hospita 24-2 M.predicted MDRD Interpreta mL/min/1.7 l 019 (S/P/Bld) [Vol tion Code 3m2 Distric 11:40-0 rate/Area] t [address] [place] [address] () Globulin (S) 2.4 g/dL Invalid 2.3-3.5 Hospita 24-2 [Mass/Vol] Interpreta g/dL l 019 tion Code Distric 11:40-0 t [address] [place] [address] () Glucose [Mass/Vol] 101 mg/dL Invalid 70-110 [facility]osp[facility] 06-2 4-2 Interpreta mg/dL l 019 tion Code Distric 11:40-0 [address] [place] [address] () HCO3 (P) [Moles/Vol] 22 Invalid 22-33 [facility]osp[facility] 24-2 Interpreta mEq/L l 019 tion Code Distric 11:40-0 [address] [place] [address] ([id number]) [place] [Moles/Vol] 0.89 mmol/L Invalid 0.60-1.40 [facility]ospita 0 6-24-2 Interpreta mmol/L l 019 tion Code Distric 11:40-0 [address] [place] [address] ([id number]) Osmolality Calc 287 Invalid 280-295 Hospita 24-2 [Osmolality] Interpreta l 019 tion Code Distric 11:40-0 t [address] [place] [address] ([id number]) Potassium 4.1 mmol/L Invalid 3.5-5.3 Hospita -24-2 [Moles/Vol] Interpreta mmol/L l 019 tion Code Distric 11:40-0 [address] [place] [address] ([id number]) Protein [Mass/Vol] 7.1 g/dL Invalid 6.0-8.3 Hospita 06-2 4-2 Interpreta g/dL l 019 tion Code Distric 11:40-0 [address] [place] [address] ([id number]) Sodium [Moles/Vol] 139 mmol/L Invalid 134-148 [facility]ospita 24-2 Interpreta mmol/L l 019 tion Code Distric 11:40-0 [address] [place] [address] ([id number]) Urea nitrogen 11 mg/dL Invalid 5-25 mg/dL [facility]ospita 24-2 [Mass/Vol] Interpreta l 019 tion Code Distric 11:40-0 [address] [place] [address] ([id number]) laboratory on 2018-11-26 Albumin BCG dye 5.0 Invalid 3.6-5.1 [facility]ospita 10-2 [Mass/Vol] Interpreta g/dL l 019 tion Code Distric 10:35-0 t [address] [place] [address] ([id number]) ALP [Catalytic 78 U/L Invalid 35-130 U/L Hospita 11-26- activity/Vol] Interpreta l 019 tion Code Distric 10:35-0 [address] [place] [address] ([id number]) ALT [Catalytic 20 U/L Invalid 6-45 U/L Hospita 11-26- activity/Vol] Interpreta l 019 tion Code Distric 10:35-0 [address] [place] [address] ([id number]) Anion gap 14 mmol/L Invalid 6-14 Hospita 11-26- [Moles/Vol] Interpreta l 019 tion Code Distric 10:35-0 t #1 of [address] [facility] () AST [Catalytic 22 U/L Invalid 2-40 U/L Hospita activity/Vol] Interpreta l 019 tion Code Distric 10:35-0 [address] [place] [address] () Bilirubin [Mass/Vol] 0.7 mg/dL Invalid 0.2-1.2 Hospita Interpreta mg/dL l 019 tion Code Distric 10:35-0 [address] [place] [address] () Calcium [Mass/Vol] 10.1 mg/dL Invalid 8.3-10.4 Hospita 08-18 Interpreta mg/dL l 019 tion Code Distric 10:35-0 [address] [place] [address] () Chloride [Moles/Vol] 107 mmol/L Invalid 95-114 Hospita 0 Interpreta mmol/L l 019 tion Code Distric 10:35-0 [address] [place] [address] () Creatinine 0.78 mg/dL Invalid 0.50-1.50 Hospita [Mass/Vol] Interpreta mg/dL l 019 tion Code Distric 10:35-0 [address] [place] [address] () GFR/1.73 sq 108 mL/min/{1.73_m2} Invalid >59 Hospita 11-26- M.predicted MDRD Interpreta mL/min/1.7 l 019 (S/P/Bld) [Vol tion Code 3m2 Distric 10:35-0 rate/Area] [address] [place] [address] () Globulin (S) 2.1 g/dL Low 2.3-3.5 Hospita 11-26-2 [Mass/Vol] g/dL l 019 Distric 10:35-0 [address] [place] [address] ([id number]) Glucose [Mass/Vol] 83 mg/dL Invalid 70-110 Hospita 01-1 0-2 Interpreta mg/dL l 019 tion Code Distric 10:35-0 [address] [place] [address] ([id number]) HCO3 (P) [Moles/Vol] 24 Invalid 22-33 Hospita Interpreta mEq/L l 019 tion Code Distric 10:35-0 [address] [place] [address] (49020) [place] [Moles/Vol] 0.91 mmol/L Invalid 0.60-1.40 Hospita 0 -10-2 Interpreta mmol/L l 019 tion Code Distric 10:35-0 [address] [place] [address] ([id number]) Osmolality Calc 289 Invalid 280-295 Hospita [Osmolality] Interpreta l 019 tion Code Distric 10:35-0 [address] [place] [address] () Potassium 4.2 mmol/L Invalid 3.5-5.3 Hospita [Moles/Vol] Interpreta mmol/L l 019 tion Code Distric 10:35-0 [address] [place] [address] (15130) Protein [Mass/Vol] 7.1 g/dL Invalid 6.0-8.3 Hospita - 0-2 Interpreta g/dL l 019 tion Code Distric 10:35-0 [address] [place] [address] ([id number]) Sodium [Moles/Vol] 141 mmol/L Invalid 134-148 Hospita 08-18 Interpreta mmol/L l 019 tion Code Distric 10:35-0 [address] [place] [address] (68222) TSH Qn 2.50 Invalid 0.32-5.00 Hospita Interpreta mIU/mL l 019 tion Code Distric 10:35-0 [address] [place] [address] (63914) Urea nitrogen 9 mg/dL Invalid 5-25 mg/dL [facility]ospita [Mass/Vol] Interpreta l 019 tion Code Distric 10:35-0 [address] [place] [address] ([id number]) laboratory on 2018-08-06 Cholesterol 184 mg/dL Invalid 100-240 Not 08-06-2 [Mass/Vol] Interpreta mg/dL Availab 018 tion Code le 10:31-0 (26179) 400 Cholesterol in HDL 66 mg/dL Invalid 30-85 Not 09-2 0-2 [Mass/Vol] Interpreta mg/dL [facility]ail[facility] 018 tion Code le 10:31-0 (05259) 400 Cholesterol in LDL 103 mg/dL High 0-100 Not 09- 0-2 [Mass/Vol] mg/dL [facility]ail[facility] 018 le 10:31-0 (14630) 400 Cholesterol in VLDL 15 mg/dL Invalid 0-42 mg/dL Not [Mass/Vol] Interpreta Avail[facility] 018 tion Code le 10:31-0 (49703) 400 Cholesterol.total/Ch 2.8 {ratio} Low 3.7-6.7 Not olesterol in HDL Avail[facility] 018 [Mass ratio] le 10:31-0 (45842) 400 Triglyceride 75 mg/dL Invalid 35-160 Not [Mass/Vol] Interpreta mg/dL Avail[facility] 018 tion Code le 10:31-0 (11589) 400 laboratory on 2018-07-22 Albumin BCG dye 4.9 Invalid 3.6-5.1 Hospita [Mass/Vol] Interpreta g/dL l 018 tion Code Distric [address] [place] [address] (60011) ALP [Catalytic 76 U/L Invalid 35-130 U/L Hospita activity/Vol] Interpreta l 018 tion Code Distric t [address] [place] [address] (42320) ALT [Catalytic 41 U/L Invalid 6-45 U/L Hospita activity/Vol] Interpreta l 018 tion Code Distric t [address] [place] [address] (49653) Anion gap 14 mmol/L Invalid 6-14 Hospita [Moles/Vol] Interpreta l 018 tion Code Distric : [address] [place] [address] (59977) AST [Catalytic 27 U/L Invalid 2-40 U/L Hospita activity/Vol] Interpreta l 018 tion Code Distric [address] [place] [address] (53410) Bilirubin [Mass/Vol] 0.6 mg/dL Invalid 0.2-1.2 Hospita Interpreta mg/dL l 018 tion Code Distric 09:11-0 [address] [place] [address] (37239) Calcium [Mass/Vol] 10.9 mg/dL High 8.3-10.4 Hospita 09 05-2 mg/dL l 018 Distric 09:-0 [address] [place] [address] (38663) Chloride [Moles/Vol] 108 mmol/L Invalid 95-114 Hospita 0 05-2 Interpreta mmol/L l 018 tion Code Distric :-0 [address] [place] [address] (09953) Creatinine 0.86 mg/dL Invalid 0.50-1.50 Hospita 07-22-2 [Mass/Vol] Interpreta mg/dL l 018 tion Code Distric :-0 [address] [place] [address] (21579) GFR/1.73 sq 97 mL/min/{1.73_m2} Invalid >59 Hospita 0 05-2 M.predicted MDRD Interpreta mL/min/1.7 l 018 (S/P/Bld) [Vol tion Code 3m2 Distric :-0 rate/Area] [address] [place] [address] (78273) Globulin (S) 2.5 g/dL Invalid 2.3-3.5 Hospita 05-2 [Mass/Vol] Interpreta g/dL l 018 tion Code Distric :-0 [address] [place] [address] (02581) Glucose [Mass/Vol] 77 mg/dL Invalid 70-110 Hospita 09-0 5-2 Interpreta mg/dL l 018 tion Code Distric :-0 [address] [place] [address] (14587) HCO3 (P) [Moles/Vol] 23 Invalid 22-33 Hospita 05-2 Interpreta mEq/L l 018 tion Code Distric 09:11-0 [address] [place] [address] (71748) [place] [Moles/Vol] 0.67 mmol/L Invalid 0.60-1.40 Hospita 0 05-2 Interpreta mmol/L l 018 tion Code Distric 09:11-0 [address] [place] [address] (09095) Osmolality Calc 290 Invalid 280-295 Hospita 05-2 [Osmolality] Interpreta l 018 tion Code Distric 09: [address] [place] [address] (07351) Potassium 4.1 mmol/L Invalid 3.5-5.3 Hospita [Moles/Vol] Interpreta mmol/L l 018 tion Code Distric :-0 [address] [place] [address] (26841) Protein [Mass/Vol] 7.4 g/dL Invalid 6.0-8.3 Hospita 09-0 5-2 Interpreta g/dL l 018 tion Code Distric : [address] [place] [address] (59852) Sodium [Moles/Vol] 141 mmol/L Invalid 134-148 Hospita 03-18 Interpreta mmol/L l 018 tion Code Distric : [address] [place] [address] (53181) TSH Qn 2.62 Invalid 0.32-5.00 Hospita Interpreta mIU/mL l 018 tion Code Distric : [address] [place] [address] (43629) Urea nitrogen 13 mg/dL Invalid 5-25 mg/dL Hospita [Mass/Vol] Interpreta l 018 tion Code Distric : [address] [place] [address] (22327) laboratory on 2017-10-31 Basophils (Bld) 0.1 10*3/uL Invalid 0.0-0.2 Not 10-31 [#/Vol] Interpreta K/uL [facility]ail[facility] 017 tion Code le 09:47-0 (65050) 500 Basophils/100 WBC 0.60 % Invalid 0.00-2.50 Not 10-31 (Bld) Interpreta % Availab 017 tion Code le 09:47-0 (44562) 500 Eosinophils (Bld) 0.4 10*3/uL Invalid 0.0-0.7 Not [#/Vol] Interpreta K/uL [facility]ail[facility] 017 tion Code le 09:47-0 (30561) 500 Eosinophils/100 WBC 4.4 % Invalid 0.0-7.0 % Not (Bld) Interpreta [facility]ail[facility] 017 tion Code le 09:47-0 (03642) 500 Erythrocyte 13.1 % Invalid 11.6-14.8 Not distribution width Interpreta % Availab 017 (RBC) [Ratio] tion Code le 09:47-0 (33687) 500 Hematocrit (Bld) 45.9 % Invalid 42.0-52.0 Not [Volume fraction] Interpreta % Availab 017 tion Code le 09:47-0 (77050) 500 Hemoglobin (Bld) 15.3 g/dL Invalid 14.0-17.0 Not [Mass/Vol] Interpreta g/dL Availab 017 tion Code le 09:47-0 (07052) 500 Lymphocytes (Bld) 2.33 10*3/uL Invalid 0.60-3.40 Not [#/Vol] Interpreta K/uL Availab 017 tion Code le 09:47-0 (00416) 500 Lymphocytes/100 WBC 23.3 % Invalid 10.0-50.0 Not (Bld) Interpreta % Availab 017 tion Code le 09:47-0 (41479) 500 MCH (RBC) [Entitic 29.8 pg Invalid 27.0-31.2 Not 10-17 5-2 mass] Interpreta pg [facility]ailab 017 tion Code le 09:47-0 (68498) 500 MCHC (RBC) 33.3 g/dL Invalid 32.0-36.0 Not 10-31-2 [Mass/Vol] Interpreta g/dL Avail[facility] 017 tion Code le 09:47-0 (77369) 500 MCV (RBC) [Entitic 89.5 fL Invalid 80.0-97.0 Not - 5-2 vol] Interpreta fL Availab 017 tion Code le 09:47-0 (20302) 500 Monocytes (Bld) 1.1 10*3/uL High 0.0-0.9 Not 10-31 [#/Vol] K/uL Availab 017 le 09:47-0 (30953) 500 Monocytes/100 WBC 11.0 % Invalid 0.0-12.0 % Not 12- 5-2 (Bld) Interpreta Availab 017 tion Code le 09:47-0 (52500) 500 Neutrophils (Bld) 6.05 10*3/uL Invalid 2.00-6.90 Not [#/Vol] Interpreta K/uL Availab 017 tion Code le 09:47-0 (41585) 500 Neutrophils/100 WBC 60.7 % Invalid 37.0-80.0 Not (Bld) Interpreta % Availab 017 tion Code le 09:47-0 (87555) 500 Platelet mean volume 10.0 fL Invalid 7.4-10.0 Not (Bld) [Entitic vol] Interpreta fL [facility]ail[facility] 017 tion Code le 09:47-0 (48896) 500 Platelets (Bld) 287 10*3/uL Invalid 150-400 Not 10-31 [#/Vol] Interpreta K/uL Availab 017 tion Code le 09:47-0 (80122) 500 RBC (Bld) [#/Vol] 5.13 10*6/uL Invalid 4.20-5.40 Not Interpreta M/uL Avail[facility] 017 tion Code le 09:47-0 (40033) 500 TSH Qn 2.08 Invalid 0.32-5.00 Not Interpreta mIU/mL [facility]ail[facility] 017 tion Code le 09:47-0 (58413) 500 WBC (Bld) [#/Vol] 9.98 10*3/uL Invalid 5.00-10.00 Not 1 Interpreta K/uL Availab 017 tion Code le 09:47-0 (75578) 500 laboratory on 2017-08-08 TSH Qn 1.61 Invalid 0.32-5.00 Not Interpreta mIU/mL Avail[facility] 017 tion Code le 11:56-0 (33905) 400 laboratory on 2017-05-19 Albumin BCG dye 4.8 Invalid 3.6-5.1 Not [Mass/Vol] Interpreta g/dL [facility]ail[facility] 017 tion Code le 09:37-0 (31553) 400 ALP [Catalytic 68 U/L Invalid 35-130 U/L Not activity/Vol] Interpreta Availab 017 tion Code le 09:37-0 (27907) 400 ALT [Catalytic 23 U/L Invalid 6-45 U/L Not activity/Vol] Interpreta Availab 017 tion Code le 09:37-0 (27203) 400 Anion gap 15 mmol/L High 6-14 Not [Moles/Vol] Availab 017 le 09:37-0 (99476) 400 AST [Catalytic 21 U/L Invalid 2-40 U/L Not activity/Vol] Interpreta [facility]ail[facility] 017 tion Code le 09:37-0 (98525) 400 Basophils (Bld) 0.0 10*3/uL Invalid 0.0-0.2 Not 05-19 [#/Vol] Interpreta K/uL [facility]ail[facility] 017 tion Code le 09:37-0 (02396) 400 Basophils/100 WBC 0.40 % Invalid 0.00-2.50 Not 05-19 (Bld) Interpreta % [facility]ail[facility] 017 tion Code le 09:37-0 (05848) 400 Bilirubin [Mass/Vol] 0.7 mg/dL Invalid 0.2-1.2 Not Interpreta mg/dL [facility]ail[facility] 017 tion Code le 09:37-0 (37103) 400 Calcium [Mass/Vol] 10.0 mg/dL Invalid 8.3-10.4 Not 01-16 Interpreta mg/dL [facility]ail[facility] 017 tion Code le 09:37-0 (18121) 400 Chloride [Moles/Vol] 107 mmol/L Invalid 95-114 Not 0 Interpreta mmol/L [facility]ail[facility] 017 tion Code le 09:37-0 (33331) 400 Creatinine 0.82 mg/dL Invalid 0.50-1.50 Not [Mass/Vol] Interpreta mg/dL [facility]ail[facility] 017 tion Code le 09:37-0 (52496) 400 Eosinophils (Bld) 0.5 10*3/uL Invalid 0.0-0.7 Not 01-16 [#/Vol] Interpreta K/uL [facility]ail[facility] 017 tion Code le 09:37-0 (31407) 400 Eosinophils/100 WBC 6.2 % Invalid 0.0-7.0 % Not 01-16 (Bld) Interpreta [facility]ail[facility] 017 tion Code le 09:37-0 (56238) 400 Erythrocyte 13.0 % Invalid 11.6-14.8 Not distribution width Interpreta % [facility]ail[facility] 017 (RBC) [Ratio] tion Code le 09:37-0 (31710) 400 GFR/1.73 sq 103 mL/min/{1.73_m2} Invalid >59 Not M.predicted MDRD Interpreta mL/min/1.7 [facility]ail[facility] 017 (S/P/Bld) [Vol tion Code 3m2 le 09:37-0 rate/Area] (87277) 400 Globulin (S) 2.6 g/dL Invalid 2.3-3.5 Not [Mass/Vol] Interpreta g/dL [facility] 017 tion Code le 09:37-0 (38477) 400 Glucose [Mass/Vol] 60 mg/dL Low 70-110 Not 07-0 3-2 mg/dL [facility]ail[facility] 017 le 09:37-0 (40184) 400 HCO3 (P) [Moles/Vol] 22 Invalid 22-33 Not Interpreta mEq/L [facility] 017 tion Code le 09:37-0 (92434) 400 Hematocrit (Bld) 44.8 % Invalid 42.0-52.0 Not [Volume fraction] Interpreta % [facility]ail[facility] 017 tion Code le 09:37-0 (62434) 400 Hemoglobin (Bld) 15.2 g/dL Invalid 14.0-17.0 Not [Mass/Vol] Interpreta g/dL [facility] 017 tion Code le 09:37-0 (40102) 400 [place] [Moles/Vol] 0.76 mmol/L Invalid 0.60-1.40 Not 0 Interpreta mmol/L [facility] 017 tion Code le 09:37-0 (09981) 400 Lymphocytes (Bld) 2.28 10*3/uL Invalid 0.60-3.40 Not [#/Vol] Interpreta K/uL [facility]ail[facility] 017 tion Code le 09:37-0 (21489) 400 Lymphocytes/100 WBC 30.1 % Invalid 10.0-50.0 Not 01-16 (Bld) Interpreta % [facility]ail[facility] 017 tion Code le 09:37-0 (15152) 400 MCH (RBC) [Entitic 29.7 pg Invalid 27.0-31.2 Not 07-0 3-2 mass] Interpreta pg [facility] 017 tion Code le 09:37-0 (59095) 400 MCHC (RBC) 33.9 g/dL Invalid 32.0-36.0 Not -03-2 [Mass/Vol] Interpreta g/dL [facility] 017 tion Code le 09:37-0 (43527) 400 MCV (RBC) [Entitic 87.5 fL Invalid 80.0-97.0 Not 07-0 3-2 vol] Interpreta fL [facility] 017 tion Code le 09:37-0 (12795) 400 Monocytes (Bld) 0.8 10*3/uL Invalid 0.0-0.9 Not 05-192 [#/Vol] Interpreta K/uL [facility] 017 tion Code le 09:37-0 (90471) 400 Monocytes/100 WBC 10.8 % Invalid 0.0-12.0 % Not 07-0 3-2 (Bld) Interpreta [facility] 017 tion Code le 09:37-0 (93153) 400 Neutrophils (Bld) 3.98 10*3/uL Invalid 2.00-6.90 Not -2 [#/Vol] Interpreta K/uL [facility] 017 tion Code le 09:37-0 (94536) 400 Neutrophils/100 WBC 52.5 % Invalid 37.0-80.0 Not -2 (Bld) Interpreta % [facility]ail[facility] 017 tion Code le 09:37-0 (69087) 400 Osmolality Calc 287 Invalid 280-295 Not [Osmolality] Interpreta [facility] 017 tion Code le 09:37-0 (47034) 400 Platelet mean volume 12.3 fL High 7.4-10.0 Not -2 (Bld) [Entitic vol] fL [facility]ail[facility] 017 le 09:37-0 (64060) 400 Platelets (Bld) 161 10*3/uL Invalid 150-400 Not 05-19 -2 [#/Vol] Interpreta K/uL [facility]ail[facility] 017 tion Code le 09:37-0 (05048) 400 Potassium 4.1 mmol/L Invalid 3.5-5.3 Not 2 [Moles/Vol] Interpreta mmol/L [facility] 017 tion Code le 09:37-0 (47470) 400 Protein [Mass/Vol] 7.4 g/dL Invalid 6.0-8.3 Not 07-0 3-2 Interpreta g/dL [facility] 017 tion Code le 09:37-0 (64649) 400 RBC (Bld) [#/Vol] 5.12 10*6/uL Invalid 4.20-5.40 Not Interpreta M/uL [facility] 017 tion Code le 09:37-0 (62046) 400 Sodium [Moles/Vol] 140 mmol/L Invalid 134-148 Not 01-16 Interpreta mmol/L [facility] 017 tion Code le 09:37-0 (10115) 400 TSH Qn 2.87 Invalid 0.32-5.00 Not Interpreta mIU/mL [facility] 017 tion Code le 09:37-0 (55460) 400 Urea nitrogen 12 mg/dL Invalid 5-25 mg/dL Not [Mass/Vol] Interpreta [facility] 017 tion Code le 09:37-0 (83154) 400 WBC (Bld) [#/Vol] 7.58 10*3/uL Invalid 5.00-10.00 Not 0 Interpreta K/uL [facility] 017 tion Code le 09:37-0 (03894) 400 laboratory on 2017-03-13 Albumin BCG dye 4.7 Invalid 3.6-5.1 Not [Mass/Vol] Interpreta g/dL [facility] 017 tion Code le 11:23-0 (03181) 400 ALP [Catalytic 79 U/L Invalid 35-130 U/L Not activity/Vol] Interpreta [facility] 017 tion Code le 11:23-0 (12136) 400 ALT [Catalytic 26 U/L Invalid 6-45 U/L Not activity/Vol] Interpreta [facility] 017 tion Code le 11:23-0 (90719) 400 Anion gap 14 mmol/L Invalid 6-14 Not [Moles/Vol] Interpreta [facility] 017 tion Code le 11:23-0 (38248) 400 AST [Catalytic 19 U/L Invalid 2-40 U/L Not activity/Vol] Interpreta [facility] 017 tion Code le 11:230 (85548) 400 Bilirubin [Mass/Vol] 0.4 mg/dL Invalid 0.2-1.2 Not Interpreta mg/dL [facility] 017 tion Code le 11:23-0 (31789) 400 Calcium [Mass/Vol] 10.5 mg/dL High 8.3-10.4 Not mg/dL [facility] 017 le 11:23-0 (26092) 400 Chloride [Moles/Vol] 107 mmol/L Invalid 95-114 Not 0 Interpreta mmol/L [facility] 017 tion Code le 11:0 (92538) 400 Creatinine 0.87 mg/dL Invalid 0.50-1.50 Not [Mass/Vol] Interpreta mg/dL [facility] 017 tion Code le 11: (42017) 400 GFR/1.73 sq 96 mL/min/{1.73_m2} Invalid >59 Not 0 M.predicted MDRD Interpreta mL/min/1.7 [facility] 017 (S/P/Bld) [Vol tion Code 3m2 le 11: rate/Area] (60292) 400 Globulin (S) 3.0 g/dL Invalid 2.3-3.5 Not [Mass/Vol] Interpreta g/dL [facility] 017 tion Code le 11:0 (00561) 400 Glucose [Mass/Vol] 99 mg/dL Invalid 70-110 Not 02-16 7-2 Interpreta mg/dL [facility] 017 tion Code le 11:0 (81972) 400 HCO3 (P) [Moles/Vol] 23 Invalid 22-33 Not Interpreta mEq/L [facility] 017 tion Code le 11:0 (42517) 400 [place] [Moles/Vol] 0.60 mmol/L Invalid 0.60-1.40 Not 0 Interpreta mmol/L [facility] 017 tion Code le 11:0 (23929) 400 Osmolality Calc 289 Invalid 280-295 Not [Osmolality] Interpreta [facility] 017 tion Code le 11:23-0 (68850) 400 Potassium 4.0 mmol/L Invalid 3.5-5.3 Not [Moles/Vol] Interpreta mmol/L [facility] 017 tion Code le 11:23-0 (60520) 400 Protein [Mass/Vol] 7.7 g/dL Invalid 6.0-8.3 Not - 7-2 Interpreta g/dL [facility] 017 tion Code le 11:0 (75458) 400 Sodium [Moles/Vol] 140 mmol/L Invalid 134-148 Not Interpreta mmol/L [facility] 017 tion Code le 11:0 (54226) 400 TSH Qn 2.21 Invalid 0.32-5.00 Not Interpreta mIU/mL [facility] 017 tion Code le 11:-0 (40392) 400 Urea nitrogen 12 mg/dL Invalid 5-25 mg/dL Not [Mass/Vol] Interpreta [facility] 017 tion Code le 11:0 (31925) 400 laboratory on 2017-02-24 Albumin BCG dye 4.6 Invalid 3.6-5.1 Not [Mass/Vol] Interpreta g/dL [facility] 017 tion Code le 09:59-0 (74269) 400 ALP [Catalytic 73 U/L Invalid 35-130 U/L Not activity/Vol] Interpreta [facility] 017 tion Code le 09:59-0 (89428) 400 ALT [Catalytic 30 U/L Invalid 6-45 U/L Not activity/Vol] Interpreta [facility] 017 tion Code le 09:59-0 (95413) 400 Anion gap 14 mmol/L Invalid 6-14 Not 02-24-2 [Moles/Vol] Interpreta [facility] 017 tion Code le 09:59-0 (07770) 400 AST [Catalytic 22 U/L Invalid 2-40 U/L Not activity/Vol] Interpreta [facility] 017 tion Code le 09:59-0 (82238) 400 Bilirubin [Mass/Vol] 1.2 mg/dL Invalid 0.2-1.2 Not Interpreta mg/dL [facility] 017 tion Code le 09:59-0 (36247) 400 Calcium [Mass/Vol] 10.0 mg/dL Invalid 8.3-10.4 Not 04- 10-2 Interpreta mg/dL [facility] 017 tion Code le 09:59-0 (00090) 400 Chloride [Moles/Vol] 106 mmol/L Invalid 95-114 Not 0 4-10-2 Interpreta mmol/L Avail[facility] 017 tion Code le 09:59-0 (02438) 400 Creatinine 0.87 mg/dL Invalid 0.50-1.50 Not 04-10-2 [Mass/Vol] Interpreta mg/dL [facility] 017 tion Code le 09:59-0 (70490) 400 GFR/1.73 sq 96 mL/min/{1.73_m2} Invalid >59 Not 0 4-10-2 M.predicted MDRD Interpreta mL/min/1.7 Avail[facility] 017 (S/P/Bld) [Vol tion Code 3m2 le 09:59-0 rate/Area] (52087) 400 Globulin (S) 2.6 g/dL Invalid 2.3-3.5 Not 04-10-2 [Mass/Vol] Interpreta g/dL [facility]ail[facility] 017 tion Code le 09:59-0 (61722) 400 Glucose [Mass/Vol] 56 mg/dL Low 70-110 Not 04-1 0-2 mg/dL Avail[facility] 017 le 09:59-0 (97055) 400 HCO3 (P) [Moles/Vol] 25 Invalid 22-33 Not 04 -10-2 Interpreta mEq/L Avail[facility] 017 tion Code le 09:59-0 (84945) 400 [place] [Moles/Vol] 0.57 mmol/L Low 0.60-1.40 Not 0 4-10-2 mmol/L Avail[facility] 017 le 09:59-0 (23575) 400 Osmolality Calc 289 Invalid 280-295 Not 04-10-2 [Osmolality] Interpreta Avail[facility] 017 tion Code le 09:59-0 (78271) 400 Potassium 3.8 mmol/L Invalid 3.5-5.3 Not 04-10-2 [Moles/Vol] Interpreta mmol/L Avail[facility] 017 tion Code le 09:59-0 (40233) 400 Protein [Mass/Vol] 7.2 g/dL Invalid 6.0-8.3 Not 04- 0-2 Interpreta g/dL Avail[facility] 017 tion Code le 09:59-0 (84288) 400 Sodium [Moles/Vol] 141 mmol/L Invalid 134-148 Not 08-18 Interpreta mmol/L Avail[facility] 017 tion Code le 09:59-0 (83740) 400 TSH Qn 1.61 Invalid 0.32-5.00 Not Interpreta mIU/mL [facility] 017 tion Code le 09:59-0 (44623) 400 Urea nitrogen 12 mg/dL Invalid 5-25 mg/dL Not [Mass/Vol] Interpreta Avail[facility] 017 tion Code le 09:59-0 (30171) 400 laboratory on 2016-12-12 Albumin BCG dye 4.5 Invalid 3.6-5.1 Not [Mass/Vol] Interpreta g/dL Avail[facility] 017 tion Code le 10:31-0 (20656) 500 ALP [Catalytic 75 U/L Invalid 35-130 U/L Not activity/Vol] Interpreta Avail[facility] 017 tion Code le 10:31-0 (56563) 500 ALT [Catalytic 34 U/L Invalid 6-45 U/L Not activity/Vol] Interpreta Avail[facility] 017 tion Code le 10:31-0 (12184) 500 Anion gap 14 mmol/L Invalid 6-14 Not [Moles/Vol] Interpreta Avail[facility] 017 tion Code le 10:31-0 (31651) 500 AST [Catalytic 20 U/L Invalid 2-40 U/L Not activity/Vol] Interpreta Avail[facility] 017 tion Code le 10:31-0 (26096) 500 Bilirubin [Mass/Vol] 0.7 mg/dL Invalid 0.2-1.2 Not Interpreta mg/dL Avail[facility] 017 tion Code le 10:31-0 (26297) 500 Calcium [Mass/Vol] 9.6 mg/dL Invalid 8.3-10.4 Not 11-18 6-2 Interpreta mg/dL Avail[facility] 017 tion Code le 10:31-0 (50180) 500 Chloride [Moles/Vol] 108 mmol/L Invalid 95-114 Not 0 Interpreta mmol/L Avail[facility] 017 tion Code le 10:31-0 (24598) 500 Creatinine 0.87 mg/dL Invalid 0.50-1.50 Not [Mass/Vol] Interpreta mg/dL Avail[facility] 017 tion Code le 10:31-0 (88603) 500 GFR/1.73 sq 96 mL/min/{1.73_m2} Invalid >59 Not 0 M.predicted MDRD Interpreta mL/min/1.7 Avail[facility] 017 (S/P/Bld) [Vol tion Code 3m2 le 10:31-0 rate/Area] (95606) 500 Globulin (S) 2.8 g/dL Invalid 2.3-3.5 Not [Mass/Vol] Interpreta g/dL Avail[facility] 017 tion Code le 10:31-0 (79882) 500 Glucose [Mass/Vol] 95 mg/dL Invalid 70-110 Not 11-18- Interpreta mg/dL Avail[facility] 017 tion Code le 10:31-0 (63554) 500 HCO3 (P) [Moles/Vol] 22 Invalid 22-33 Not Interpreta mEq/L Avail[facility] 017 tion Code le 10:31-0 (74226) 500 [place] [Moles/Vol] 0.71 mmol/L Invalid 0.60-1.40 Not 0 Interpreta mmol/L Avail[facility] 017 tion Code le 10:31-0 (49905) 500 Osmolality Calc 288 Invalid 280-295 Not [Osmolality] Interpreta Avail[facility] 017 tion Code le 10:31-0 (74443) 500 Potassium 4.3 mmol/L Invalid 3.5-5.3 Not [Moles/Vol] Interpreta mmol/L Avail[facility] 017 tion Code le 10:31-0 (64925) 500 Protein [Mass/Vol] 7.3 g/dL Invalid 6.0-8.3 Not 11-18 6-2 Interpreta g/dL Avail[facility] 017 tion Code le 10:31-0 (02633) 500 Sodium [Moles/Vol] 140 mmol/L Invalid 134-148 Not Interpreta mmol/L Avail[facility] 017 tion Code le 10:31-0 (39890) 500 TSH Qn 2.41 Invalid 0.32-5.00 Not Interpreta mIU/mL Avail[facility] 017 tion Code le 10:31-0 (25781) 500 Urea nitrogen 10 mg/dL Invalid 5-25 mg/dL Not [Mass/Vol] Interpreta Avail[facility] 017 tion Code le 10:31-0 ([id number]) 500 laboratory on 2016-12-05 [place] [Moles/Vol] 0.80 mmol/L Invalid 0.60-1.40 Not 0 Interpreta mmol/L Availab 017 tion Code le 10:00-0 (75320) 500 laboratory on 2016-12-02 [place] [Moles/Vol] 0.53 mmol/L Low 0.60-1.40 Not 0 mmol/L Availab 017 le 09:38-0 (56911) 500 Social History Date Type Detail Facility Unknown if ever smoked [facility] ([id number]) Vital Signs The data below is from unstructured sources Blood pressure systolic 124 mmHg 2018-10-01 Blood pressure diastolic 88 mmHg 2018-10-01 Functional Status No Information Mental Status No Information History general Narrative - Reported Note Date & Note Facility Type History general Narrative - Reported Type Medical back trouble History Medical mild IDD History Medical Autism History Medical Depression History Medical Cerebral Palsy History Surgical Rectum surgery History Hospitalizatio rectum surgery n History [facility] ([id number]) Summary Purpose eClinicalWorks Submission Additional Source Comments This clinical document has been generated using [email or web address] software that has been certified by the Office of the National Coordinator for Health Information Technology (ONC 15.99.04.3023.Diam.31.00.0.631806) and the National Committee for [employer] (NCQA, as an eMeasure certified technology). FOR RECORDS PERTAINING TO PATIENTS WHO ARE OR HAVE BEEN ENROLLED IN A CHEMICAL D EPENDENCY/SUBSTANCE ABUSE PROGRAM, SOME INFORMATION MAY BE OMITTED. This clinica l summary was aggregated from multiple sources. Caution should be exercised in using it in the provision of clinical care. This summary normalizes information from multiple sources, and as a consequence, information in this document may ma terially change the coding, format and clinical context of patient data. In wesley tion, data may be omitted in some cases. CLINICAL DECISIONS SHOULD BE BASED ON T HE PRIMARY CLINICAL RECORDS. [facility] [employer] [facility]. provides no warranty or guara ntee of the accuracy or completeness of information in this document.The followi ng information is based on time limited clinical information UNRECOGNIZED CONTENT PROVIDED BELOW FOR UNRECOGNIZED SECTION REASON FOR VISIT Restorative #19
--- OUTSIDE RECORDS SUMMARY | 2020-06-07 21:14 | XMS REPORT ---
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 Name Role Phone IMCHELLE NIEVES Unavailable Unavailable PROBLEMS Unknown Problems ALLERGIES No Information ENCOUNTERS Encounter Location Date Diagnosis [facility] [id number] [place] [id number] Sep, Oral health maintenance stat us requiring routine preventive dental care K08.9 [facility] [id number] [place] [address] [id number] Sep, Caries K02.9 [facility] [address] [id number] May, Encounter for dental examina tion Z01.20 [facility] [id number] [place] [id number] Nov, Encounter for dental examina tion Z01.20 [facility] [id number] [place] [address] [id number] Apr, Dental examination Z01.20 [facility] [id number] [place] [address] [id number] Sep, Encounter for dental examina tion and cleaning without abnormal findings Z01.20 [facility] [id number] [place] [phone] March, IMMUNIZATIONS No Known Immunizations SOCIAL HISTORY Never Assessed REASON FOR VISIT Recall PLAN OF CARE Activity Details Follow Up 4 Months Reason:Perio mainta aminata VITAL SIGNS MEDICATIONS Unknown Medications RESULTS No Results PROCEDURES Procedure Date Ordered Result Body Site PROPHYLAXIS - ADULT Oct 01, 2018 TOPICAL FLUORIDE VARNISH Oct 01, 2018 INSTRUCTIONS MEDICATIONS ADMINISTERED No Known Medications MEDICAL (GENERAL) HISTORY Type Description Date Medical History back trouble Medical History mild IDD Medical History Autism Medical History Depression Medical History Cerebral Palsy Surgical History Rectum surgery Hospitalization History rectum surgery
[2020-06-07 21:18] VITALS: BP 141/107
[2020-06-07] MEDS ORDERED: LEVO500T80 PO (21:23)
[2020-06-07] MEDS ORDERED: DOXY100T2 PO (21:23)
--- NOTE | 2020-06-07 21:24 | ED Lower Extremity ---
General Chief Complaint: Lower Extremity Stated Complaint: R FOOT STEPPED ON NAIL Source: patient Exam Limitations: no limitations History of Present Illness Date Seen by Provider: Jun 07, 2020 Time Seen by Provider: 21:20 Initial Comments Mentally handicapped gentleman to ER by private vehicle with reports of having stepped on a nail about 30 minutes prior to arrival. Tetanus is not up-to-date. He is accompanied by his caregiver from the nursing home. Onset: just prior to arrival Severity: moderate Pain/Injury Location: right foot Method of Injury: fell Modifying Factors: Worse With Movement Allergies and Home Medications Allergies Coded Allergies: sulfamethoxazole (Verified Allergy, Unknown, 06/07/20) trimethoprim (Verified Allergy, Unknown, 06/07/20) Patient Home Medication List Home Medication List Reviewed: Yes Review of Systems Constitutional: see HPI EENTM: see HPI Respiratory: no symptoms reported Cardiovascular: no symptoms reported Genitourinary: no symptoms reported Musculoskeletal: no symptoms reported Skin: see HPI Psychiatric/Neurological: No Symptoms Reported Past Cqczdux-Eypiok-Ncehuw Hx Patient Social History Recent Foreign Travel: No Contact w/Someone Who Travel: No Physical Exam Vital Signs Capillary Refill : Height, Weight, BMI Height: '" Weight: lbs. oz. kg; BMI Method: General Appearance: WD/WN, no apparent distress Neck: non-tender, full range of motion Respiratory: no respiratory distress, no accessory muscle use Gastrointestinal: normal bowel sounds, non tender, soft Hips: bilateral hip non-tender, bilateral hip normal inspection, bilateral hip normal range of motion Legs: bilateral leg non-tender, bilateral leg normal inspection, bilateral leg normal range of motion Knees: bilateral knee non-tender, bilateral knee normal inspection, bilateral knee normal range of motion Ankles: bilateral ankle non-tender, bilateral ankle normal inspection, bilateral ankle normal range of motion Feet: right foot other (nonbleeding puncture wound to the plantar surface of the forefoot middle aspect on the right. No surrounding erythema. Tender to touch. He is wearing a sock on which he has written and permanent marker "my foot is hurting me bad" which can only be read from his point of view) Neurologic/Psychiatric: alert, normal mood/affect, oriented x 3 Skin: normal color, warm/dry Progress/Results/Core Measures Results/Orders My Orders Orders - BLAIR MOSLEY APRN Dipht,Pertuss(Acell),Tet Adult (Boostrix (7/22/20 21:30) Ibuprofen Tablet (Motrin Tablet) (06/07/20 21:30) Cephalexin Capsule (Keflex Capsule) (06/07/20 21:30) Foot, Right, 3 View (06/07/20 21:16) Departure Impression Primary Impression: Puncture wound of plantar aspect of foot Qualified Codes: S91.331A - Puncture wound without foreign body, right foot, initial encounter Disposition: HOME, SELF-CARE Condition: Stable Departure-Patient Inst. Decision time for Depature: 21:22 Referrals: NO,LOCAL PHYSICIAN (PCP/Family) Primary Care Physician Patient Instructions: Wound Care (DC) Add. Discharge Instructions: 1. Tylenol and ibuprofen for pain control. Keep a close eye on this for any sign of infection, that is her biggest concern. Take the 2 antibiotics as directed. Follow-up with his doctor next week for recheck. All discharge instructions reviewed with patient and/or family. Voiced understanding. Scripts Doxycycline Hyclate (Doxycycline Hyclate) 100 Mg Tablet 100 MG PO BID, #14 TAB 0 Refills Prov: BLAIR MOSLEY APRN 06/07/20 Levofloxacin (Levofloxacin) 500 Mg Tablet 500 MG PO DAILY, #5 TAB 0 Refills Prov: BLAIR MOSLEY APRN 06/07/20 BLAIR MOSLEY APRN Jun 07, 2020 21:23
[2020-06-07] MEDS ORDERED: IBUPROFEN 800 MG (MOTRIN) TAB PO ONE (21:30)
[2020-06-07] MEDS ORDERED: TETANUS,DIPTH,PERTUSS P/F (BOOSTRIX) 0.5 ML VIAL IM ONE (21:30)
[2020-06-07] MEDS ORDERED: CEPHALEXIN 250 MG (KEFLEX) CAP PO ONE (21:30)
--- NOTE | 2020-06-07 21:46 | Diagnostic Imaging Report ---
Right foot at 941h. INDICATION: Stepped on a nail 3 views were obtained. There are no prior studies for comparison. Reportedly the patient stepped on a nail. There is no radiopaque foreign body identified. There is no fracture or acute bony abnormality noted. The Lisfranc joint seems well maintained. There is a moderate hallux valgus deformity at the 1st ray. IMPRESSION: 1. There is no evidence for a radiopaque foreign body. There is no fracture or acute bony abnormality appreciated either. Dictated by: Dictated on workstation # [id number]
== END 2020-06-07 21:48 | disposition home or self-care (01) ==
LOC: EDUNIT# 21:06 → ER 21:08
DX: S91.331A Puncture wound without foreign body, right foot, initial encounter (principal); Z88.1 Allergy status to other antibiotic agents; Z88.2 Allergy status to sulfonamides; Z23 Encounter for immunization; W18.39XA Other fall on same level, initial encounter; W45.0XXA Nail entering through skin, initial encounter
CPT/HCPCS: 73630; 90471; 90715